=== PATIENT | male | born 1995 | race African-American/Black ===

== ENCOUNTER 2019-01-23 05:29 | Emergency (ER) | payer OTHER ==
[~2019-01-23] VITALS: Ht 193 cm; Wt 108.9 kg
[2019-01-23 06:01] LABS: ABSOLUTE EOSINOPHILS 0.3 thou/uL (0.0-0.7); ABSOLUTE MONOCYTES 1.3 thou/uL (0.0-1.2); ABSOLUTE NEUTROPHILS 6.1 thou/uL (1.6-8.1); BASOPHILS 0.4 %; EOSINOPHILS 2.3 %; HEMATOCRIT 43.4 % (42.0-52.0); HEMOGLOBIN 14.3 gm/dL (14.0-18.0); MCH 24.5 pg (26.0-34.0); MCHC 32.9 g/dL (28.0-37.0); MCV 74.4 fL (80.0-100.0); MONOCYTES 10.2 %; MPV 7.7 fl. (7.2-11.1); NUCLEATED RBCS 0 /100WBC; PLATELET COUNT* 268 thou/uL (150-400); POLYS 48.1 %; RBC 5.84 mil/uL (4.50-6.00); RDW-CV 14.8 % (10.5-14.5); WBC 12.7 thou/uL (4.0-11.0)
[2019-01-23 06:10] LABS: CALCIUM 9.1 mg/dL (8.5-10.1); POTASSIUM 3.6 mmol/L (3.5-5.1)
[2019-01-23 06:15] LABS: TOTAL BILIRUBIN 0.6 mg/dL (<0.1-1.0); TOTAL PROTEIN 8.1 g/dL (6.4-8.2)
[2019-01-23] MEDS ORDERED: ZOFRAN ODT4 MG PO (09:52)
[2019-01-23] MEDS ORDERED: NORCO 5-325 TA1 EAC1 PO (09:52)
[2019-01-23 09:54] LABS: URINE BILIRUBIN NEGATIVE (Negative); URINE BLOOD NEGATIVE (Negative); URINE CLARITY CLEAR; URINE COLOR YELLOW; URINE GLUCOSE-RANDOM NEGATIVE (Negative); URINE KETONES NEGATIVE (Negative); URINE LEUKOCYTES-REFLEX NEGATIVE (Negative); URINE NITRITE-REFLEX NEGATIVE (Negative); URINE PROTEIN NEGATIVE (Negative); URINE SPECIFIC GRAVITY 1.015 (1.005-1.030); URINE UROBILINOGEN 0.2 E.U./dl (0.2-1.0)
[2019-01-23 09:59] LABS: AMP/METHAMP Negative (Negative); BARBITURATES Negative (Negative); BENZODIAZEPINES Negative (Negative); COCAINE Negative (Negative); METHADONE Negative (Negative); OPIATES Negative (Negative); PCP Negative (Negative); THC Negative (Negative)
[2019-01-23 10:09] VITALS: BP 116/70
== END 2019-01-23 10:10 | disposition home or self-care (01) ==
LOC: M.ERS 05:29
PROVIDERS: Emergency Medicine Emergency Medical Services; Personal Emergency Response Attendant
DX: R10.32 Left lower quadrant pain (principal); R11.2 Nausea with vomiting, unspecified; R19.7 Diarrhea, unspecified; F10.10 Alcohol abuse, uncomplicated; F12.10 Cannabis abuse, uncomplicated; Z88.8 Allergy status to other drugs, medicaments and biological substances

== ENCOUNTER 2019-09-09 14:33 | Emergency (ER) | payer OTHER ==
[~2019-09-09] VITALS: Ht 193 cm; Wt 99.8 kg
[~2019-09-09 14:33] MED LIST: NORCO 5-325 TA1 EAC1 PO; ZOFRAN ODT4 MG PO
[2019-09-09 15:02] LABS: INFLUENZA A ANTIGEN Negative (Negative)
[2019-09-09] MEDS ORDERED: PROMETHAZI6.25 MG/5 PO (15:16)
[2019-09-09] MEDS ORDERED: TYLENOL WITH CO1 TA1 PO (15:16)
[2019-09-09] MEDS ORDERED: TESSALON PERLE100 MG PO (15:16)
[2019-09-09 15:26] VITALS: BP 148/76
== END 2019-09-09 15:28 | disposition home or self-care (01) ==
LOC: M.ERS 14:33
PROVIDERS: Physician Assistant
DX: J10.1 Influenza due to other identified influenza virus with other respiratory manifestations (principal); Z88.6 Allergy status to analgesic agent

== ENCOUNTER 2020-03-18 12:49 | Emergency (ER) | payer OTHER ==
[~2020-03-18] VITALS: Ht 193 cm; Wt 122.5 kg
[~2020-03-18 12:49] MED LIST changes: +PROMETHAZI6.25 MG/5 PO; +TESSALON PERLE100 MG PO; +TYLENOL WITH CO1 TA1 PO
[2020-03-18] MEDS ORDERED: CIPRO500 MG PO (14:10)
[2020-03-18 14:16] VITALS: BP 132/70
== END 2020-03-18 14:17 | disposition home or self-care (01) ==
LOC: M.ERS 12:49
DX: S31.139A Puncture wound of abdominal wall without foreign body, unspecified quadrant without penetration into peritoneal cavity, initial encounter (principal); R20.2 Paresthesia of skin; F17.210 Nicotine dependence, cigarettes, uncomplicated; Z88.6 Allergy status to analgesic agent; W22.8XXA Striking against or struck by other objects, initial encounter; Y93.89 Activity, other specified; Y92.89 Other specified places as the place of occurrence of the external cause; Y99.8 Other external cause status

== ENCOUNTER 2020-03-27 12:43 | Emergency (ER) | payer OTHER ==
[~2020-03-27] VITALS: Ht 193 cm; Wt 122.5 kg
[~2020-03-27 12:43] MED LIST changes: +CIPRO500 MG PO
[2020-03-27 13:42] VITALS: BP 158/98
== END 2020-03-27 13:43 | disposition home or self-care (01) ==
LOC: M.ERS 12:43
DX: S93.492A Sprain of other ligament of left ankle, initial encounter (principal); Z88.6 Allergy status to analgesic agent; W10.8XXA Fall (on) (from) other stairs and steps, initial encounter; Y93.89 Activity, other specified; Y92.89 Other specified places as the place of occurrence of the external cause; Y99.8 Other external cause status

== ENCOUNTER 2020-07-13 20:00 | Emergency (ER) | payer OTHER ==
[~2020-07-13] VITALS: Ht 193 cm; Wt 122.5 kg
[2020-07-13 21:01] LABS: INFLUENZA A ANTIGEN Negative (Negative); INFLUENZA B ANTIGEN Negative (Negative)
[2020-07-13] MEDS ORDERED: MEDROLDOSEPACK PO (21:08)
[2020-07-13] MEDS ORDERED: AMOXICILLIN 50500 MG PO (21:08)
[2020-07-13 21:21] VITALS: BP 108/55
== END 2020-07-13 21:21 | disposition home or self-care (01) ==
LOC: M.ERS 20:00
PROVIDERS: Nurse Practitioner Family
DX: J02.9 Acute pharyngitis, unspecified (principal); J20.9 Acute bronchitis, unspecified; Z20.828 Contact with and (suspected) exposure to other viral communicable diseases